=== PATIENT | female | born 1990 | race Caucasian/White ===

== ENCOUNTER 2016-08-30 22:40 | Emergency (ER) | payer BC, OTHER ==
[~2016-08-30] VITALS: Ht 157.5 cm; Wt 46.3 kg
[2016-08-31 00:14] VITALS: BP 122/74
[2016-08-31] MEDS ORDERED: CYCLOBENZAPRINE HCL 10 MG TAB PO ONE (01:00)
[2016-08-31] MEDS ORDERED: IBUPROFEN 600 MG TAB PO ONE (01:00)
== END 2016-08-31 01:06 | disposition home or self-care (01) ==
LOC: ER 22:42
DX: S46.812A Strain of other muscles, fascia and tendons at shoulder and upper arm level, left arm, initial encounter (principal); Z88.4 Allergy status to anesthetic agent; V43.52XA Car driver injured in collision with other type car in traffic accident, initial encounter; Y93.89 Activity, other specified; Y99.8 Other external cause status; Y92.89 Other specified places as the place of occurrence of the external cause
CPT/HCPCS: 72040; 72070

== ENCOUNTER 2017-08-31 12:37 | Emergency (ER) | payer BC ==
[~2017-08-31] VITALS: Ht 157.5 cm; Wt 47.2 kg
[2017-08-31 13:47] VITALS: BP 111/69
[2017-08-31] MEDS ORDERED: IBUPROFEN 600 MG TAB PO ONE (14:45)
== END 2017-08-31 14:48 | disposition home or self-care (01) ==
LOC: ER 12:37
DX: S93.601A Unspecified sprain of right foot, initial encounter (principal); Z88.8 Allergy status to other drugs, medicaments and biological substances; W01.0XXA Fall on same level from slipping, tripping and stumbling without subsequent striking against object, initial encounter; Y93.89 Activity, other specified; Y99.8 Other external cause status; Y92.89 Other specified places as the place of occurrence of the external cause
CPT/HCPCS: 73610; 73630

== ENCOUNTER → 2024-07-17 | Outpatient (CLI) | payer OTHER | END | disposition home or self-care (01) | LOC: LAB 07:11 | PROVIDERS: ATTEND Obstetrics & Gynecology | DX: R87.1 Abnormal level of hormones in specimens from female genital organs (principal) | CPT/HCPCS: 84144 ==